=== PATIENT | female | born 1960 | race Caucasian/White ===

== ENCOUNTER 2020-02-02 09:55 | Emergency (ER) | payer OTHER | END 2020-02-02 10:55 | disposition home or self-care (01) | LOC: JVIRT 09:55 | DX: Z11.59 Encounter for screening for other viral diseases (principal) | CPT/HCPCS: C9803; Q3014-GT; U0003 ==

== ENCOUNTER 2020-04-30 08:18 | Emergency (ER) | payer OTHER ==
[2020-04-30] MEDS ORDERED: IBUPROFEN 400 MG TABLET (FP) PO ONE ×2 (08:26→08:53)
[2020-04-30 08:40] VITALS: BP 158/89; PULSE 96; TEMP 99.1; BMI 37.8
[2020-04-30] MEDS ORDERED: ACETAMINOPHEN 325 MG TABLET (FP) PO ONE (08:51)
[2020-04-30] MEDS ORDERED: ACETAMINOPHEN 325 MG TABLET (FP) ONE (08:59)
== END 2020-04-30 09:59 | disposition home or self-care (01) ==
LOC: FER 08:18
DX: M25.561 Pain in right knee (principal)
CPT/HCPCS: 73562-TC-RT-FY; 99283-25

== ENCOUNTER 2022-04-08 05:56 | Day surgery (SDC) | payer OTHER ==
[2022-04-04 16:00] VITALS: BMI 38.2
[2022-04-08] MEDS ORDERED: BUPIVACAINE HCL/PF 2.5 MG/ML - 30 ML VIAL IJ ONE (07:07)
[2022-04-08] MEDS ORDERED: MIDAZOLAM HCL 2 MG/2 ML SINGLE DOSE VIAL ONE (07:20)
[2022-04-08] MEDS ORDERED: PROPOFOL 20 ML ONE (07:35)
[2022-04-08] MEDS ORDERED: ONDANSETRON 4 MG/2 ML VIAL IVPUSH PRN (08:30)
[2022-04-08] MEDS ORDERED: PROMETHAZINE HCL 25 MG/1 ML VIAL IVPUSH PRN (08:30)
[2022-04-08] MEDS ORDERED: oxyCODONE HCL 5 MG TABLET PO PRN (08:30)
[2022-04-08] MEDS ORDERED: LACTATED RINGERS SOLUTION 1,000 ML IV SCH (08:30)
[2022-04-08] MEDS ORDERED: ACETAMINOPHEN 1000 MG/100 ML BAG IVPB ONE (08:41)
[2022-04-08] MEDS ORDERED: KETOROLAC TROMETHAMINE 30 MG/1 ML VIAL IVPUSH ONE (08:41)
[2022-04-08] MEDS ORDERED: DEXAMETHASONE SOD PHOSPHATE 4 MG/1 ML VIAL ONE (08:43)
[2022-04-08] MEDS ORDERED: DEXAMETHASONE SOD PHOSPHATE 4 MG/1 ML VIAL IVPUSH ONE (08:46)
[2022-04-08] MEDS ORDERED: FENTANYL CITRATE/PF 50 MCG/ML VIAL ONE ×2 (08:47→09:27)
[2022-04-08] MEDS ORDERED: PROMETHAZINE HCL 25 MG/1 ML VIAL IVPB PRN (09:24)
[2022-04-08 09:56] VITALS: RESP 16; TEMP 97.8
[2022-04-08 11:05] VITALS: BP 114/65; PULSE 87
== END 2022-04-08 11:30 | disposition home or self-care (01) ==
LOC: FASU 05:56
PROVIDERS: ATTEND Orthopaedic Surgery Sports Medicine
PROC: 0SBC4ZZ Excision of Right Knee Joint, Percutaneous Endoscopic Approach (ICD-10-PCS; 2022-04-08)
PROC: 0SBC4ZZ Excision of Right Knee Joint, Percutaneous Endoscopic Approach (ICD-10-PCS; principal; 2022-04-08 07:55)
DX: S83.241A Other tear of medial meniscus, current injury, right knee, initial encounter (principal); S83.281A Other tear of lateral meniscus, current injury, right knee, initial encounter; M65.9 Synovitis and tenosynovitis, unspecified; X58.XXXA Exposure to other specified factors, initial encounter; Y93.9 Activity, unspecified; Y92.9 Unspecified place or not applicable
CPT/HCPCS: 82962; 94760

== ENCOUNTER 2023-02-24 05:00 | Day surgery (SDC) | payer OTHER ==
[2023-02-22 14:53] VITALS: BMI 32.5
[2023-02-24] MEDS ORDERED: LIDOCAINE HCL/PF 1% SDV 5ML VIAL ONE (07:20)
[2023-02-24] MEDS ORDERED: DEXAMETHASONE SOD PHOSPHATE 10 MG/1 ML VIAL ONE (07:21)
[2023-02-24 13:39] VITALS: RESP 18
[2023-02-24] MEDS ORDERED: LIDOCAINE HCL 1% PRESERVATIVE FREE - 30ML VIAL INF ONE (14:52)
[2023-02-24] MEDS ORDERED: IOHEXOL 180 MG/1 ML ML IJ ONE (14:55)
[2023-02-24] MEDS ORDERED: DEXAMETHASONE SOD PHOSPHATE 10 MG/1 ML VIAL IVPUSH ONE (14:57)
[2023-02-24 15:30] VITALS: BP 121/73; PULSE 84; TEMP 97.5
== END 2023-02-24 16:12 | disposition home or self-care (01) ==
LOC: JASU-SURG 05:00
PROVIDERS: ATTEND Pain Medicine Pain Medicine
PROC: 3E0R3BZ Introduction of Anesthetic Agent into Spinal Canal, Percutaneous Approach (ICD-10-PCS; 2023-02-24)
PROC: 3E0R33Z Introduction of Anti-inflammatory into Spinal Canal, Percutaneous Approach (ICD-10-PCS; principal; 2023-02-24 15:00)
DX: M48.061 Spinal stenosis, lumbar region without neurogenic claudication (principal); M54.16 Radiculopathy, lumbar region
CPT/HCPCS: 76000-TC-FY; J1100

== ENCOUNTER 2023-03-17 04:21 | Day surgery (SDC) | payer OTHER ==
[2023-03-15 14:35] VITALS: BMI 32.5
[~2023-03-17 04:21] MED LIST: DEXAMETHASONE SOD PHOSPHATE 10 MG/1 ML VIAL IVPUSH ONE; IOHEXOL 180 MG/1 ML ML IJ ONE; LIDOCAINE 1% P/F 10 MG/ML VIAL INF ONE
[2023-03-17 06:57] VITALS: TEMP 97.7
[2023-03-17] MEDS ORDERED: DEXAMETHASONE SOD PHOSPHATE 10 MG/1 ML VIAL ONE (07:02)
[2023-03-17] MEDS ORDERED: LIDOCAINE HCL/PF 2% SDV 5ML VIAL ONE (07:02)
[2023-03-17] MEDS ORDERED: ACETAMINOPHEN 500 MG TABLET (FP) PO PRN (09:46)
[2023-03-17 09:49] VITALS: BP 110/57; PULSE 75; RESP 18
== END 2023-03-17 11:07 | disposition home or self-care (01) ==
LOC: JASU-SURG 04:21
PROVIDERS: ATTEND Pain Medicine Pain Medicine
PROC: 3E0R3BZ Introduction of Anesthetic Agent into Spinal Canal, Percutaneous Approach (ICD-10-PCS; 2023-03-17)
PROC: 3E0R33Z Introduction of Anti-inflammatory into Spinal Canal, Percutaneous Approach (ICD-10-PCS; principal; 2023-03-17 08:45)
DX: M48.061 Spinal stenosis, lumbar region without neurogenic claudication (principal)
CPT/HCPCS: 76000-TC-FY; J1100

== ENCOUNTER 2023-04-07 03:48 | Day surgery (SDC) | payer OTHER ==
[2023-04-04 13:21] VITALS: BMI 31.7
[2023-04-07] MEDS ORDERED: LIDOCAINE HCL/PF 1% SDV 5ML VIAL ONE (07:21)
[2023-04-07] MEDS ORDERED: BUPIVACAINE HCL/PF 0.75% 10 ML VIAL ONE (07:21)
[2023-04-07 09:12] VITALS: RESP 20
[2023-04-07] MEDS: LIDOCAINE 1% P/F 10 MG/ML VIAL INF ONE (10:27)
[2023-04-07] MEDS: BUPIVACAINE 0.75% IN DEXTROSE/PF 2ML AMPULE NR ONE ×2 (10:36→10:40)
[2023-04-07] MEDS: IOHEXOL 180 MG/1 ML ML IJ ONE (10:38)
[2023-04-07 12:35] VITALS: BP 130/70; PULSE 70; TEMP 98
[2023-04-07] MEDS ORDERED: ACETAMINOPHEN 500 MG TABLET (FP) PO PRN (14:32)
== END 2023-04-07 12:10 | disposition home or self-care (01) ==
LOC: JASU-SURG 03:48
PROVIDERS: ATTEND Pain Medicine Pain Medicine
PROC: 3E0T33Z Introduction of Anti-inflammatory into Peripheral Nerves and Plexi, Percutaneous Approach (ICD-10-PCS; 2023-04-07)
PROC: 3E0T3BZ Introduction of Anesthetic Agent into Peripheral Nerves and Plexi, Percutaneous Approach (ICD-10-PCS; principal; 2023-04-07 11:00)
DX: M47.816 Spondylosis without myelopathy or radiculopathy, lumbar region (principal)
CPT/HCPCS: 76000-TC-FY

== ENCOUNTER 2023-04-28 03:51 | Day surgery (SDC) | payer OTHER ==
[2023-04-26 08:27] VITALS: BMI 32.5
[2023-04-28] MEDS ORDERED: TRIAMCINOLONE ACET 40MG/1ML VIAL ONE (07:31)
[2023-04-28] MEDS ORDERED: BUPIVACAINE HCL/PF 0.5% (5MG/ML) 10 ML VIAL ONE (07:31)
[2023-04-28] MEDS ORDERED: LIDOCAINE HCL/PF 1% SDV 5ML VIAL ONE (07:32)
[2023-04-28 09:02] VITALS: RESP 20
[2023-04-28] MEDS: BUPIVACAINE HCL/PF 0.5% (5MG/ML) 10 ML VIAL IJ ONE (10:20)
[2023-04-28] MEDS: IOHEXOL 180 MG/1 ML ML IJ ONE (10:20)
[2023-04-28] MEDS: LIDOCAINE HCL 1%, 10 MG/ML (20ML VIAL) INF ONE (10:20)
[2023-04-28] MEDS: TRIAMCINOLONE ACETONIDE 40 MG/ML 10 ML VIAL IJ ONE (10:20)
[2023-04-28 10:59] VITALS: BP 111/58; PULSE 77; TEMP 98.5
== END 2023-04-28 11:11 | disposition home or self-care (01) ==
LOC: JASU-SURG 03:51
PROVIDERS: ATTEND Pain Medicine Pain Medicine
PROC: 3E0U3BZ Introduction of Anesthetic Agent into Joints, Percutaneous Approach (ICD-10-PCS; 2023-04-28)
PROC: 3E0U33Z Introduction of Anti-inflammatory into Joints, Percutaneous Approach (ICD-10-PCS; principal; 2023-04-28 10:15)
DX: M53.3 Sacrococcygeal disorders, not elsewhere classified (principal)
CPT/HCPCS: 76000-TC-FY

== ENCOUNTER 2023-06-13 04:36 | Day surgery (SDC) | payer OTHER ==
[2023-06-06 17:07] VITALS: BMI 32.5
[2023-06-13] MEDS ORDERED: LIDOCAINE HCL/PF 1% SDV 5ML VIAL ONE (07:20)
[2023-06-13] MEDS ORDERED: BUPIVACAINE HCL/PF 0.75% 10 ML VIAL ONE ×2 (07:20→10:27)
[2023-06-13 09:25] VITALS: RESP 18
[2023-06-13] MEDS: LIDOCAINE 1% P/F 10 MG/ML VIAL INF ONE ×2 (10:29→10:56)
[2023-06-13] MEDS: BUPIVACAINE HCL/PF 0.75% 10 ML VIAL NR ONE (10:29)
[2023-06-13 11:15] VITALS: BP 123/80; PULSE 75; TEMP 98.3
[2023-06-13] MEDS ORDERED: ACETAMINOPHEN 500 MG TABLET (FP) PO PRN (13:13)
== END 2023-06-13 12:00 | disposition home or self-care (01) ==
LOC: JASU-SURG 04:36
PROVIDERS: ATTEND Pain Medicine Pain Medicine
PROC: 3E0T33Z Introduction of Anti-inflammatory into Peripheral Nerves and Plexi, Percutaneous Approach (ICD-10-PCS; 2023-06-13)
PROC: 3E0T3BZ Introduction of Anesthetic Agent into Peripheral Nerves and Plexi, Percutaneous Approach (ICD-10-PCS; principal; 2023-06-13 11:15)
DX: M47.816 Spondylosis without myelopathy or radiculopathy, lumbar region (principal)
CPT/HCPCS: 76000-TC-FY

== ENCOUNTER 2023-07-11 04:24 | Day surgery (SDC) | payer OTHER ==
[2023-07-07 10:27] VITALS: BMI 31.7
[2023-07-11] MEDS ORDERED: LIDOCAINE HCL/PF 2% SDV 5ML VIAL ONE (07:35)
[2023-07-11] MEDS ORDERED: BUPIVACAINE HCL/PF 0.75% 10 ML VIAL ONE (07:36)
[2023-07-11] MEDS ORDERED: DEXAMETHASONE SOD PHOSPHATE 10 MG/1 ML VIAL ONE (07:36)
[2023-07-11] MEDS ORDERED: LIDOCAINE HCL/PF 1% SDV 5ML VIAL ONE (07:36)
[2023-07-11 12:01] VITALS: RESP 20
[2023-07-11] MEDS: BUPIVACAINE HCL/PF 0.75% 10 ML VIAL NR ONE ×3 (12:28)
[2023-07-11] MEDS: LIDOCAINE HCL/PF 2% SDV 5ML VIAL INF ONE ×3 (12:28)
[2023-07-11] MEDS: LIDOCAINE 1% P/F 10 MG/ML VIAL INF ONE ×3 (12:28)
[2023-07-11] MEDS: DEXAMETHASONE SOD PHOSPHATE 10 MG/1 ML VIAL IVPUSH ONE ×2 (12:28)
[2023-07-11] MEDS ORDERED: ACETAMINOPHEN 500 MG TABLET (FP) PO PRN (12:49)
[2023-07-11 19:51] VITALS: BP 130/86; PULSE 67; TEMP 97.2
== END 2023-07-11 13:40 | disposition home or self-care (01) ==
LOC: JASU-SURG 04:24
PROVIDERS: ATTEND Pain Medicine Pain Medicine
PROC: 015B3ZZ Destruction of Lumbar Nerve, Percutaneous Approach (ICD-10-PCS; principal; 2023-07-11 13:00)
DX: M47.816 Spondylosis without myelopathy or radiculopathy, lumbar region (principal)
CPT/HCPCS: 76000-TC-FY; J1100

== ENCOUNTER 2023-08-10 04:16 | Day surgery (SDC) | payer OTHER ==
[2023-08-02 14:40] VITALS: BMI 31.7
[2023-08-10 13:27] VITALS: RESP 16
[2023-08-10] MEDS ORDERED: BUPIVACAINE HCL/PF 0.75% 10 ML VIAL ONE (14:24)
[2023-08-10] MEDS ORDERED: DEXAMETHASONE SOD PHOSPHATE 10 MG/1 ML VIAL ONE (14:24)
[2023-08-10] MEDS ORDERED: LIDOCAINE HCL/PF 1% SDV 5ML VIAL ONE (14:24)
[2023-08-10 15:02] VITALS: TEMP 97.8
[2023-08-10 15:25] VITALS: BP 130/80; PULSE 78
[2023-08-10] MEDS ORDERED: ACETAMINOPHEN 500 MG TABLET (FP) PO PRN (16:34)
== END 2023-08-10 15:27 | disposition home or self-care (01) ==
LOC: JASU-SURG 04:16
PROVIDERS: ATTEND Pain Medicine Pain Medicine
PROC: 015B3ZZ Destruction of Lumbar Nerve, Percutaneous Approach (ICD-10-PCS; principal; 2023-08-10 14:21)
DX: M54.16 Radiculopathy, lumbar region (principal)
CPT/HCPCS: 76000-TC-FY; J1100

== ENCOUNTER 2023-10-06 04:50 | Day surgery (SDC) | payer OTHER ==
[2023-10-05 11:16] VITALS: BMI 31.7
[2023-10-06] MEDS ORDERED: TRIAMCINOLONE ACET 40MG/1ML VIAL ONE (07:11)
[2023-10-06] MEDS ORDERED: LIDOCAINE HCL/PF 1% SDV 5ML VIAL ONE (07:11)
[2023-10-06] MEDS ORDERED: LIDOCAINE HCL/PF 2% SDV 5ML VIAL ONE (07:11)
[2023-10-06] MEDS ORDERED: DEXAMETHASONE SOD PHOSPHATE 10 MG/1 ML VIAL ONE (07:11)
[2023-10-06] MEDS: IOHEXOL 180 MG/1 ML ML IJ ONE (11:10)
[2023-10-06] MEDS: LIDOCAINE HCL 1% PRESERVATIVE FREE - 30ML VIAL IJ ONE (11:10)
[2023-10-06] MEDS: DEXAMETHASONE SOD PHOSPHATE 10 MG/1 ML VIAL IVPUSH ONE ×2 (11:11)
[2023-10-06 11:44] VITALS: BP 138/82; PULSE 67; RESP 18; TEMP 97.3
== END 2023-10-06 11:50 | disposition home or self-care (01) ==
LOC: JASU-SURG 04:50
PROVIDERS: ATTEND Pain Medicine Pain Medicine
PROC: 3E0R3BZ Introduction of Anesthetic Agent into Spinal Canal, Percutaneous Approach (ICD-10-PCS; 2023-10-06)
PROC: 3E0R33Z Introduction of Anti-inflammatory into Spinal Canal, Percutaneous Approach (ICD-10-PCS; principal; 2023-10-06 10:15)
DX: M48.061 Spinal stenosis, lumbar region without neurogenic claudication (principal); M54.16 Radiculopathy, lumbar region
CPT/HCPCS: 76000-TC-FY; J1100

== ENCOUNTER 2023-12-28 04:07 | Day surgery (SDC) | payer OTHER ==
[2023-12-26 11:59] VITALS: BMI 31.7
[2023-12-28] MEDS ORDERED: LIDOCAINE HCL/PF 1% SDV 5ML VIAL ONE (07:24)
[2023-12-28 08:45] VITALS: RESP 20
[2023-12-28] MEDS ORDERED: ACETAMINOPHEN 500 MG TABLET (FP) PO PRN (09:18)
[2023-12-28] MEDS: LIDOCAINE HCL 1% PRESERVATIVE FREE - 30ML VIAL IJ ONE ×2 (10:57)
[2023-12-28 12:19] VITALS: BP 139/70; PULSE 65; TEMP 97
== END 2023-12-28 12:11 | disposition home or self-care (01) ==
LOC: JASU-SURG 04:07
PROVIDERS: ATTEND Pain Medicine Pain Medicine
PROC: 01HY3MZ Insertion of Neurostimulator Lead into Peripheral Nerve, Percutaneous Approach (ICD-10-PCS; principal; 2023-12-28 10:00)
DX: G89.4 Chronic pain syndrome (principal); M54.50 Low back pain, unspecified
CPT/HCPCS: 64555; C1778; 76000-TC-FY

== ENCOUNTER 2024-08-02 05:16 | Day surgery (SDC) | payer OTHER ==
[2024-06-11 06:42] VITALS: BMI 32.5
[2024-08-02 10:45] VITALS: RESP 18
[2024-08-02] MEDS ORDERED: LIDOCAINE HCL/PF 2% SDV 5ML VIAL ONE ×2 (11:05→11:27)
[2024-08-02] MEDS ORDERED: PROPOFOL 20 ML ONE (11:05)
[2024-08-02] MEDS ORDERED: MIDAZOLAM HCL 2 MG/2 ML SINGLE DOSE VIAL ONE (11:06)
[2024-08-02] MEDS ORDERED: LIDOCAINE 1%/EPI 1:100000 (20 ML MULTI DOSE VIAL) ONE (11:27)
[2024-08-02] MEDS ORDERED: LIDOCAINE HCL/PF 1% SDV 5ML VIAL ONE (11:27)
[2024-08-02] MEDS ORDERED: GENTAMICIN SO4 80 MG/2 ML VIAL ONE (11:27)
[2024-08-02] MEDS ORDERED: VANCOMYCIN 1,000 MG VIAL (RESTRICTED TO ID ONLY) ONE (11:27)
[2024-08-02] MEDS ORDERED: DEXMEDETOMIDINE HCL 200 MCG/2 ML IVPB ONE (11:35)
[2024-08-02] MEDS: ceFAZolin SODIUM 1 GM VIAL IVPB ONE (11:55)
[2024-08-02] MEDS ORDERED: ceFAZolin SODIUM 1 GM VIAL ONE (11:57)
[2024-08-02] MEDS ORDERED: DEXAMETHASONE SOD PHOSPHATE 4 MG/1 ML VIAL ONE (11:57)
[2024-08-02] MEDS: LIDOCAINE HCL 1% PRESERVATIVE FREE - 30ML VIAL IJ ONE ×2 (12:13)
[2024-08-02] MEDS ORDERED: ACETAMINOPHEN 500 MG TABLET (FP) PO PRN (12:23)
[2024-08-02] MEDS: LIDOCAINE HCL/PF 2% SDV 5ML VIAL INF ONE (12:23)
[2024-08-02] MEDS: LIDOCAINE 1%/EPI 1:100000 (20 ML MULTI DOSE VIAL) IJ ONE ×2 (12:37)
[2024-08-02] MEDS ORDERED: ONDANSETRON 4 MG/2 ML VIAL ONE (13:28)
[2024-08-02] MEDS ORDERED: KETOROLAC TROMETHAMINE 30 MG/1 ML VIAL ONE (13:28)
[2024-08-02 14:44] VITALS: TEMP 97
[2024-08-02 16:01] VITALS: BP 102/52; PULSE 75
== END 2024-08-02 16:00 | disposition home or self-care (01) ==
LOC: JASU-SURG 05:16
PROVIDERS: ATTEND Pain Medicine Pain Medicine
PROC: 01HY0MZ Insertion of Neurostimulator Lead into Peripheral Nerve, Open Approach (ICD-10-PCS; 2024-08-02)
PROC: 0JH70CZ Insertion of Single Array Rechargeable Stimulator Generator into Back Subcutaneous Tissue and Fascia, Open Approach (ICD-10-PCS; 2024-08-02)
PROC: 00HU3MZ Insertion of Neurostimulator Lead into Spinal Canal, Percutaneous Approach (ICD-10-PCS; 2024-08-02)
PROC: 0JH70CZ Insertion of Single Array Rechargeable Stimulator Generator into Back Subcutaneous Tissue and Fascia, Open Approach (ICD-10-PCS; principal; 2024-08-02 12:00)
DX: M48.062 Spinal stenosis, lumbar region with neurogenic claudication (principal); M54.16 Radiculopathy, lumbar region; M54.50 Low back pain, unspecified; G89.4 Chronic pain syndrome
CPT/HCPCS: 63650; 63685; C1778; C1826; L8679; 76000-TC-FY; 82962; C1767